=== PATIENT | male | born 1965 | race African-American/Black ===

== ENCOUNTER → 2017-06-29 | Outpatient (CLI) | payer BC ==
[~2017-06-29] MED LIST: AZAT50TA9 PO; CYCL25TA PO; HYDR25TA6 PO; LISI40TA PO; LOSA25TA5 PO; NAPR-850 PO; OMEP-110 PO; PREDNISONE PO; SPIR25TA3 PO; SULF1TAB24 PO
== END | disposition home or self-care (01) ==
LOC: CVU 12:12
PROVIDERS: ATTEND Internal Medicine Cardiovascular Disease
DX: I08.1 Rheumatic disorders of both mitral and tricuspid valves (principal); J84.10 Pulmonary fibrosis, unspecified; M06.9 Rheumatoid arthritis, unspecified; I10 Essential (primary) hypertension; I27.2 Other secondary pulmonary hypertension; Z87.891 Personal history of nicotine dependence
CPT/HCPCS: 93306